=== PATIENT | female | born 1945 | race Two or more races ===

== ENCOUNTER 2022-04-23 09:25 | Day surgery (SDC) | payer MEDICARE ==
[2022-04-21 11:30] VITALS: BMI 26.8
[~2022-04-23 09:25] MED LIST: LACTATED RINGERS 1,000 ML IV SCH
[2022-04-23 09:47] VITALS: RESP 16; TEMP 98
[2022-04-23] MEDS ORDERED: PROPOFOL 10 MG/ML 20 ML VIAL IV ONE (11:36)
--- NOTE | 2022-04-23 11:50 | P.PCN ---
Date of Procedure: 04/23/22 Procedure(s) Performed: BRIEF HISTORY: Patient is a 76-year-old pleasant white female scheduled for an elective colonoscopy as a part of lower abdominal pain and alternating diarrhea and constipation for the last several months duration. PROCEDURE PERFORMED: Colonoscopy. PREOPERATIVE DIAGNOSIS: Lower abdominal pain and change in bowel habits. IV sedation per Anesthesia. PROCEDURE: After informed consent was obtained, the patient, was brought into the endoscopy unit. IV sedation was administered by Anesthesia under continuous monitoring. Digital rectal examination was normal. Initially the Olympus CF-160 flexible video colonoscope was then inserted in the rectum, gradually advanced into the cecum without any difficulty. Careful examination was performed as the scope was gradually being withdrawn. Ileocecal valve and the appendiceal orifice were visualized and appeared normal. Prep was excellent. Mucosa of the cecum, ascending colon, transverse colon, descending colon, sigmoid colon, and rectum appeared normal. Scattered sigmoid diverticulosis. Retroflexion was performed in the rectum and no lesions were seen. The patient tolerated the procedure well. IMPRESSION: Normal-appearing colon from rectum to cecum no evidence of colorectal neoplasia . Scattered sigmoid diverticulosis. RECOMMENDATIONS: Findings of this examination were discussed with the patient as well as a family. She was advised to be a high-fiber diet and take fiber supplements a regular basis..
[2022-04-23 12:16] VITALS: BP 145/63; PULSE 53
== END 2022-04-23 12:28 | disposition home or self-care (01) ==
LOC: ORWHC2ENDO 09:25
PROVIDERS: ATTEND Internal Medicine Gastroenterology
DX: K57.30 Diverticulosis of large intestine without perforation or abscess without bleeding (principal); R19.7 Diarrhea, unspecified; K59.00 Constipation, unspecified; I10 Essential (primary) hypertension; Z79.899 Other long term (current) drug therapy; Z79.891 Long term (current) use of opiate analgesic
CPT/HCPCS: 45378; J2704